=== PATIENT | male | born 1975 | race Caucasian/White ===

== ENCOUNTER 2021-12-09 16:00 | Emergency (ER) | payer BC ==
[~2021-12-09 16:00] MED LIST: CELEXA10 MG PO; MULTIVITAMINS1 EAC1 PO; NORCO 7.5-3251 EACH PO
[2021-12-09 17:41] LABS: HEMOGLOBIN 12.8 gm/dl (14.0-17.5); RED BLOOD COUNT 4.46 M/UL (4.20-5.50); WHITE BLOOD COUNT 7.2 K/UL (4.5-11.0)
[2021-12-09 17:55] LABS: BUN/CREATININE RATIO 19 (0-10)
[2021-12-09] MEDS ORDERED: HYDROCODON-ACE1 EAC4 PO (19:37)
[2021-12-09] MEDS ORDERED: CYCLOBENZAPRINE10 MG PO (19:37)
== END 2021-12-09 20:05 | disposition home or self-care (01) ==
LOC: ER1 16:00
PROVIDERS: Preventive Medicine Occupational Medicine
DX: S39.012A Strain of muscle, fascia and tendon of lower back, initial encounter (principal); S90.32XA Contusion of left foot, initial encounter; S90.31XA Contusion of right foot, initial encounter; R40.2410 Glasgow coma scale score 13-15, unspecified time; W11.XXXA Fall on and from ladder, initial encounter; Y92.009 Unspecified place in unspecified non-institutional (private) residence as the place of occurrence of the external cause
CPT/HCPCS: 70450; 71045; 72125; 72128; 72131; 72170; 73620; 80048; 85025; 93005; 96374; 99284; J1170